=== PATIENT | male | born 1970 | race Asian ===

== ENCOUNTER 2019-03-14 09:40 | Day surgery (SDC) | payer OTHER ==
[~2019-03-14] VITALS: Ht 165.1 cm; Wt 56.7 kg
[2019-03-14] MEDS ORDERED: LIDOCAINE 2% 100 MG/5 ML UJET TP ONE (12:19)
[2019-03-14] MEDS ORDERED: MIDAZOLAM 2 MG/2 ML VIAL ONE (12:19)
[2019-03-14] MEDS: fentaNYL 0.05 MG/ML VIAL ONE ×3 (12:20→12:40)
== END 2019-03-14 13:43 | disposition home or self-care (01) ==
LOC: MMU 09:40 → MDS 09:40
PROVIDERS: ATTEND Internal Medicine Gastroenterology
DX: K57.30 Diverticulosis of large intestine without perforation or abscess without bleeding (principal); K62.5 Hemorrhage of anus and rectum; I63.89 Other cerebral infarction; G81.90 Hemiplegia, unspecified affecting unspecified side; F17.210 Nicotine dependence, cigarettes, uncomplicated; I10 Essential (primary) hypertension; E78.5 Hyperlipidemia, unspecified; Z79.82 Long term (current) use of aspirin; Z79.899 Other long term (current) drug therapy; Z80.0 Family history of malignant neoplasm of digestive organs
CPT/HCPCS: 45378; J3010; J2250